=== PATIENT | male | born 1990 | race Two or more races ===

== ENCOUNTER 2017-06-02 12:49 | Emergency (ER) | payer OTHER ==
[~2017-06-02] VITALS: Ht 182.9 cm; Wt 72.6 kg
[~2017-06-02 12:49] MED LIST: GABAPENTIN100 MG ORAL; XANAX0.25 MG ORAL
[2017-06-02 12:55] VITALS: BP 135/95
[2017-06-02] MEDS ORDERED: Lidocaine HCl 2% Jelly 5ml Tube TOPIC ONE (13:15)
[2017-06-02] MEDS ORDERED: Tetanus/Diptheria/Pertussis Vaccine 0.5ml Syr IM ONE (13:15)
[2017-06-02] MEDS ORDERED: BACITRACIN ZIN1 EACH TOPIC (13:40)
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
[2017-06-02] MEDS ORDERED: IBUPROFEN600 MG ORAL (13:41)
[2017-06-02] MEDS ORDERED: Bacitracin Oint 15gm Tube TOPIC SCH (13:45)
[2017-06-02 14:33] VITALS: BP 127/89
--- NOTE | 2017-06-03 15:08 | Diagnostic Imaging Report ---
Indication: Abdominal pain Technique: Supine view of the abdomen Comparison: none Findings: Bowel gas pattern is unremarkable. No unusual masses or calcifications. Impression: No acute process
== END 2017-06-02 14:33 | disposition home or self-care (01) ==
LOC: EDBD 12:49 → EMR 14:09
DX: S71.101A Unspecified open wound, right thigh, initial encounter (principal); X95.8XXA Assault by other firearm discharge, initial encounter; Y92.89 Other specified places as the place of occurrence of the external cause; Z23 Encounter for immunization
CPT/HCPCS: 74000; 90471; 90715; 99284